=== PATIENT | female | born 1955 | race Caucasian/White ===

== ENCOUNTER → 2016-04-06 | Outpatient (CLI) | payer BC ==
--- NOTE | 2016-04-06 11:46 | BD ---
EXAMINATION TYPE: MG DEXA axial skeleton. DATE OF EXAM: 04/06/2016 10:49 AM COMPARISON: NONE CLINICAL HISTORY: Height: 202 Weight: 5 ft 5 in FRAX RISK QUESTIONS: Alcohol (3 or more units per day): NO Family History (Parent hip fracture): no Glucocorticoids (More than 3mos): NO (Ex: prednisone, prednisolone, methylprednisolone, dexamethasone, and hydrocortisone). History of Fracture in Adulthood: YES Secondary Osteoporosis: 1. Type 1 Diabetes: NO 2. Hyperthyroidism: NO 3. Menopause before 45: YES 4. Malnutrition: NO 5. Chronic liver disease: NO Rheumatoid Arthritis: NO Current Tobacco Use: NO RISK FACTORS HISTORY OF: History of Wrist Fracture: CARPAL TUNNEL LEFT WRIST When: 2014 Other Fractures since Age 52: YES RT ANKLE When: Family History of Osteoporosis: NO Smoke tobacco: NO Drink Alcohol: NO Active: NO Postmenopausal woman: AGE 46 MEDICATIONS: Additional Medications: LISINOPRIL, PREVACID, Additional History: EXAM MEASUREMENTS: Bone mineral densitometry was performed using the BioStable System. Bone mineral density as measured about the Lumbar spine is: ----- L1-L4(G/cm2): 1.010 T Score Values are as follows: ----- L2: -2.2 ----- L3: -0.6 ----- L4: -1.8 ----- L1-L4: -1.4 BASELINE Bone mineral density about the R hip (g/cm2): 0.857 Bone mineral density about the L hip (g/cm2): 0.892 T Score values are as follows: -----R Neck: -1.3 -----L Neck: -1.0 -----R Intertrochanter: -0.7 -----L Intertrochanter: -0.3 BASELINE IMPRESSION: Osteopenia (T Score between -2.5 and -1 as noted by T score values There is slightly increased risk of fracture and the patient may be considered for treatment. Re-Screen 1-2 years. LUMBAR AND RT FEMUR NOTE: T-SCORE=SD OF THE YOUNG ADULT MEAN.
--- NOTE | 2016-04-14 08:28 | MM ---
Reason for exam: screening (asymptomatic). Last mammogram was performed 2 years and 1 month ago. History: Patient is postmenopausal. Physical Findings: A clinical breast exam by your physician is recommended on an annual basis and results should be correlated with mammographic findings. MG Screening Mammo w CAD Bilateral CC and MLO view(s) were taken. Prior study comparison: March 15, 2014, mammogram, performed at [facility] [place]. There are scattered fibroglandular densities. No significant changes when compared with prior studies. ASSESSMENT: Negative, BI-RAD 1 RECOMMENDATION: Routine screening mammogram of both breasts in 1 year.
== END | disposition home or self-care (01) ==
LOC: RADMAMWWP 10:12
PROVIDERS: ATTEND Family Medicine
DX: Z12.31 Encounter for screening mammogram for malignant neoplasm of breast (principal); Z13.820 Encounter for screening for osteoporosis; M85.80 Other specified disorders of bone density and structure, unspecified site
CPT/HCPCS: 77080; G0202

== ENCOUNTER → 2016-08-11 | Outpatient (CLI) | payer BC ==
--- NOTE | 2016-08-11 12:21 | ECHOS ---
DATE OF SERVICE: 08/11/2016 AGE: 60Y SEX: F HT: 65" WT: 204 lbs. Protocol Jimmie: X Others: Stress Echo Stage: 3 Dur. of Exercise: 8:00 *Heart Rate Blood Pressure *Rest: 74 Rest: 123/58 * *Max. Achieved: 147 Maximum BP: 176/59 85% PMHR: 138 100% PMHR: 162 *METS: 10.1 INDICATIONS: Chest pain. MEDICATIONS: Lisinopril, Protonix. Patient was exercised for a total period of 8 minutes. Peak heart rate of 147 was achieved. Maximum blood pressure of 176/59 mmHg was noted. Resting EKG shows normal sinus rhythm with normal NE interval and QRS duration and normal ST-T waves. No ST segment depression suggestive of ischemia is noted. Echocardiographic images reveal a normal left ventricular chamber size with normal left ventricular systolic function. In the immediate postexercise period, normal increase in the wall thickness and contractility is noted. FINAL IMPRESSION: 1. This stress echocardiographic study is negative for stress-induced ischemia. 2. EKG portion of the stress test is not suggestive of ischemia. 3. Patient's exercise tolerance is average.
== END | disposition home or self-care (01) ==
LOC: RADNMMAIN 09:47
PROVIDERS: ATTEND Family Medicine
DX: R07.89 Other chest pain (principal)
CPT/HCPCS: 93350; 93017; Q9957

== ENCOUNTER → 2016-08-25 | Outpatient (CLI) | payer BC ==
--- NOTE | 2016-08-25 19:10 | CT ---
EXAMINATION TYPE: CT abdomen pelvis w con DATE OF EXAM: 08/25/2016 COMPARISON: NONE HISTORY: Ai umbilical pain. CT DLP: 1529.00 mGycm Automated exposure control for dose reduction was used. TECHNIQUE: Helical acquisition of images was performed from the lung bases through the pelvis. CONTRAST: Performed with Oral Contrast and with IV Contrast, patient injected with 100 mL of Omnipaque 300. FINDINGS: Lung bases are clear. There is no pleural effusion. There is a large hiatal hernia. Liver spleen pancreas appear normal. Bile ducts are not dilated. There are clips from cholecystectomy . There is no adrenal mass. Kidneys show satisfactory contrast opacification. There is no hydronephro sis. Abdominal aorta is atheromatous. There is no retroperitoneal adenopathy. There is no ascites. Bl adder distends smoothly. There is no sign of a pelvic mass. There is no free fluid in the pelvis. Som endix appears normal. The bony structures appear intact. IMPRESSION: MILD ATHEROSCLEROTIC VASCULAR DISEASE. NORMAL APPENDIX. NO SIGN OF ACUTE ABDOMEN AND PELVIS. HIATAL H ERNIA NOTED.
== END | disposition home or self-care (01) ==
LOC: RADCTMAIN 15:06
PROVIDERS: ATTEND Family Medicine
DX: K44.9 Diaphragmatic hernia without obstruction or gangrene (principal)
CPT/HCPCS: 74177; Q9967

== ENCOUNTER 2016-10-13 09:16 | Day surgery (SDC) | payer BC ==
[2016-10-08 14:23] VITALS: BMI 33.9
[~2016-10-13 09:16] MED LIST: LACTATED RINGERS 1,000 ML IV SCH; LIDOCAINE 1% 20 ML VIAL (10MG/ML) FOR IV START INTRADERMA PRN
[2016-10-13 09:38] VITALS: RESP 16; TEMP 97.9
[2016-10-13] MEDS ORDERED: PROPOFOL 10 MG/ML 20 ML VIAL IV ONE (10:16)
--- NOTE | 2016-10-13 10:47 | P.OP ---
Date of Procedure: 10/13/16 Preoperative Diagnosis: Gastroesophageal reflux disease Postoperative Diagnosis: Hill grade 3 hiatal hernia GERD Obesity BMI 33.9 Procedure(s) Performed: EGD with biopsy Implants: Anesthesia: MAC Surgeon: Chayo Cuello Pathology: other Condition: stable Disposition: PACU Indications for Procedure: 60 years old female presents with refractory gastroesophageal reflux disease. Computed tomography scan showed hiatal hernia. Informed consent obtained and she elected to undergo EGD with possible biopsy. Operative Findings: Hill grade 3 hiatal hernia Description of Procedure: A timeout was performed to verify the correct patient and correct procedure. Patient was on continuous vitals and pulse ox monitoring throughout the procedure. She was placed in lateral decubitus position and an oral bite block was inserted. A well-lubricated Olympus upper endoscope was passed orally. The esophagus was intubated without difficulty. The vocal cords were visualised and protected at all times. The endoscope was passed beyond the pylorus into the first and second portion of the duodenum. No normality was noted in the duodenum mucosa. Two random biopsies were taken from the gastric antrum using cold biopsy forceps. The scope was then retroflexed. Hillgrade 3 hiatal hernia was noted . No mass, active ulcer or bleeding stigmata noted within the gastric lumen. The GE junction is measured at 34 cm from the incisors and diaphragmatic impression at 38 cm . No evidence of reflux esophagitis. The endoscope was gradually withdrawn. No abnormality identified in the esophagus. Patient tolerated the procedure well and was taken to post anesthesia care unit in stable condition. FINAL DIAGNOSIS: 1. Hill Grade 3 Hiatal hernia 2. Gastro esophageal reflux disease 3. Obesity BMI 33.9 SPECIMEN: Antral biopsy RECOMMENDATION: 1. Robotic/lap hiatal hernia repair with mesh with Alanis fundoplication
[2016-10-13 11:13] VITALS: BP 111/66; PULSE 51
== END 2016-10-13 11:45 | disposition home or self-care (01) ==
LOC: ORWHC2ENDO 09:16
PROVIDERS: ATTEND Surgery
DX: K29.50 Unspecified chronic gastritis without bleeding (principal); K21.9 Gastro-esophageal reflux disease without esophagitis; K44.9 Diaphragmatic hernia without obstruction or gangrene; E66.9 Obesity, unspecified; Z68.33 Body mass index [BMI] 33.0-33.9, adult; I10 Essential (primary) hypertension; Z79.899 Other long term (current) drug therapy; Z88.0 Allergy status to penicillin
CPT/HCPCS: 81025; 88305; 88342; 43239; J2704

== ENCOUNTER → 2016-11-05 | Outpatient (CLI) | payer BC ==
[2016-11-05 13:20] LABS: Basophils % (A) 1 %; CH 31.4; CHCM 34.4; Eosinophils # (A) 0.1 k/uL (0-0.7); Eosinophils % (A) 1 %; HCT 43.9 % (34.0-46.0); HDW 2.44; HGB 14.4 gm/dL (11.4-16.0); Luc # (Auto) 0.08; Luc % (Auto) 1; Lymphocytes # (A) 1.7 k/uL (1.0-4.8); Lymphocytes % (A) 29 %; MCH 30.1 pg (25.0-35.0); MCHC 32.8 g/dL (31.0-37.0); MCV 91.8 fL (80.0-100.0); Monocytes # (A) 0.2 k/uL (0-1.0); Monocytes % (A) 4 %; Neutrophils # (A) 3.6 k/uL (1.3-7.7); Neutrophils % (A) 63 %; RBC 4.79 m/uL (3.80-5.40); RDW 14.4 % (11.5-15.5); WBC 5.7 k/uL (3.8-10.6); WBC (Perox) 5.68
== END | disposition home or self-care (01) ==
LOC: LABWHC1 12:35
PROVIDERS: ATTEND Anesthesiology
DX: Z01.812 Encounter for preprocedural laboratory examination (principal)
CPT/HCPCS: 36415; 85025

== ENCOUNTER 2016-11-15 08:44 | Inpatient (IN) | payer BC ==
[~2016-11-15 08:44] MED LIST changes: +DEXAMETHASONE SOD PHOSPHATE 10 MG/ML 1 ML VIAL IV ONE; +HEPARIN SODIUM,PORCINE 5,000 UNIT/ML 1 ML VIAL SQ ONE; +HYDROmorphone 1 MG/ML 1 ML SYRINGE IVP PRN; -LACTATED RINGERS 1,000 ML IV SCH; -LIDOCAINE 1% 20 ML VIAL (10MG/ML) FOR IV START INTRADERMA PRN; +MIDAZOLAM 2 MG/2 ML VIAL IV PRN; +ONDANSETRON 4 MG/2 ML VIAL IVP ONE; +SCOPOLAMINE 1.5MG/72HR PATCH TRANSDERM ONE; +ceFAZolin 2 GM in SODIUM CHLORIDE 0.9% 100 ML IVPB ONE
[2016-11-15] MEDS: LACTATED RINGERS 1,000 ML IV SCH (10:42)
[2016-11-15] MEDS ORDERED: LIDOCAINE 1% 20 ML VIAL (10MG/ML) FOR IV START INTRADERMA ONE (10:43)
[2016-11-15] MEDS ORDERED: CLINDAMYCIN 900 MG in DEXTROSE 5% IN WATER 50 ML IVPB STA ×2 (10:55)
[2016-11-15] MEDS ORDERED: PROPOFOL 10 MG/ML 20 ML VIAL IV ONE (11:08)
[2016-11-15] MEDS ORDERED: LIDOCAINE 1% INJ 10MG/ML (20 ML MDV) ONE (11:08)
[2016-11-15] MEDS ORDERED: ROCURONIUM BROMIDE 10 MG/ML 10 ML VIAL IV ONE (11:08)
[2016-11-15] MEDS ORDERED: SUCCINYLCHOLINE CHLORIDE 100 MG/5 ML SYR IV ONE (11:08)
[2016-11-15] MEDS ORDERED: HYDROmorphone (PF) 1 MG/ML ONE (11:08)
[2016-11-15] MEDS ORDERED: DILTIAZEM 100 MG VIAL.PORT IV ONE (11:08)
[2016-11-15] MEDS ORDERED: MIDAZOLAM 2 MG/2 ML VIAL ONE (11:08)
[2016-11-15] MEDS ORDERED: PHENYLEPHRINE-0.9% NACL SYG 1 MG/10 ML SYRINGE ONE (11:08)
[2016-11-15] MEDS ORDERED: fentaNYL (PF) 50 MCG/ML 2 ML AMP ONE (11:08)
[2016-11-15] MEDS ORDERED: NEOSTIGMINE 1 MG/ML 10 ML VIAL ONE (11:08)
[2016-11-15] MEDS ORDERED: GLYCOPYRROLATE 0.2 MG/ML 2 ML VIAL ONE (11:08)
[2016-11-15] MEDS ORDERED: ePHEDrine SULFATE/0.9% NACL/PF 50 MG/5 ML SYRINGE IV ONE (11:08)
[2016-11-15] MEDS ORDERED: LIDOCAINE 2%-EPI 1:100,000 20 ML VIAL SQ ONE (11:46)
[2016-11-15] MEDS ORDERED: LACTATED RINGERS 1,000 ML IV ONE (14:26)
[2016-11-15] MEDS ORDERED: HYOSCYAMINE ORAL DROPS 1.875 MG/15 ML BOTTLE PO PRN (14:49)
[2016-11-15] MEDS ORDERED: NALOXONE 0.4 MG/ML 1 ML VIAL IV PRN (14:49)
[2016-11-15] MEDS ORDERED: ONDANSETRON 4 MG/2 ML VIAL IVP PRN (14:49)
[2016-11-15] MEDS ORDERED: diphenhydrAMINE 50 MG/ML 1 ML VIAL IVP PRN (14:49)
[2016-11-15] MEDS ORDERED: HYDROmorphone 1 MG/ML 1 ML SYRINGE IVP ONE (15:51)
[2016-11-15] MEDS: ALBUTEROL NEBULIZED 2.5 MG/3 ML INHALATION SCH ×2 (17:07→21:07)
[2016-11-15] MEDS: HEPARIN SODIUM,PORCINE 5,000 UNIT/ML 1 ML VIAL SQ SCH (17:35)
[2016-11-15 18:10] VITALS: BMI 33.7
[2016-11-15] MEDS: ACETAMINOPHEN IV (For NPO) 1,000 MG in EMPTY BAG 1 BAG IVPB SCH (20:04)
[2016-11-15] MEDS: 0.9% NACL WITH KCL 20 MEQ/L 1,000 ML IV SCH (20:04)
[2016-11-15] MEDS: HYDROmorphone 1 MG/ML 1 ML SYRINGE IVP PRN (21:38)
[2016-11-16] MEDS: ACETAMINOPHEN IV (For NPO) 1,000 MG in EMPTY BAG 1 BAG IVPB SCH ×2 (02:30→10:13)
[2016-11-16] MEDS: HYDROmorphone 1 MG/ML 1 ML SYRINGE IVP PRN (06:37)
[2016-11-16] MEDS: 0.9% NACL WITH KCL 20 MEQ/L 1,000 ML IV SCH (06:37)
[2016-11-16 07:01] LABS: Anion Gap 8 mmol/L; Blood Urea Nitrogen 9 mg/dL (7-17); Calcium 8.6 mg/dL (8.4-10.2); Carbon Dioxide 23 mmol/L (22-30); Chloride 105 mmol/L (98-107); Magnesium 1.8 mg/dL (1.6-2.3); Non-African American GFR(MDRD) >60 (>60 ml/min/1.73 sqM); Phosphorus 3.6 mg/dL (2.5-4.5); Potassium 4.3 mmol/L (3.5-5.1); Sodium 136 mmol/L (137-145)
[2016-11-16 07:07] LABS: Basophils % (A) 0 %; CH 31.6; CHCM 34.3; Eosinophils % (A) 0 %; HCT 35.8 % (34.0-46.0); Luc # (Auto) 0.06; Luc % (Auto) 1; Lymphocytes # (A) 1.3 k/uL (1.0-4.8); Lymphocytes % (A) 17 %; MCH 31.1 pg (25.0-35.0); MCHC 33.6 g/dL (31.0-37.0); MCV 92.5 fL (80.0-100.0); Mean Platelet Volume 8.5; Monocytes # (A) 0.3 k/uL (0-1.0); Monocytes % (A) 4 %; Neutrophils % (A) 79 %; RBC 3.86 m/uL (3.80-5.40); RDW 14.1 % (11.5-15.5); WBC 7.6 k/uL (3.8-10.6); WBC (Perox) 7.76
[2016-11-16] MEDS: ALBUTEROL NEBULIZED 2.5 MG/3 ML INHALATION SCH ×2 (09:08→12:19)
--- NOTE | 2016-11-16 10:18 | FL ---
EXAMINATION TYPE: FL UGI DATE OF EXAM: 11/16/2016 COMPARISON: NONE HISTORY: Postoperative evaluation after Alanis fundoplication. TECHNIQUE: A double contrast UGI study is performed. FINDINGS: Delayed propulsion of contrast is seen through the distal esophagus at the gastroesophageal junction. Eventual opening of the lower esophageal sphincter is visualized with no evidence of stricture. Wild is is seen within the distal esophagus with no reflux. A few tertiary contractions are noted. No evid ence of leak is seen. IMPRESSION: Moderate obstruction without stricture at the gastroesophageal junction, which may relate to postoperative edema. No evidence of leak.
[2016-11-16] MEDS: HEPARIN SODIUM,PORCINE 5,000 UNIT/ML 1 ML VIAL SQ SCH ×2 (10:20)
[2016-11-16] MEDS ORDERED: DEXAMETHASONE SOD PHOSPHATE 10 MG/ML 1 ML VIAL IV STA (10:20)
[2016-11-16 12:07] VITALS: BP 91/53; PULSE 60; RESP 18; TEMP 97.8
--- NOTE | 2016-11-16 12:49 | P.DS ---
Providers Date of admission: 11/15/16 08:44 Expected date of discharge: 11/16/16 Attending physician: Chayo Cuello Primary care physician: [facility] Course: 61-year-old female who presented for a elective robotic-assisted laparoscopic pavel fundoplication with a hiatal hernia repair for treatment of symptomatic refractory esophageal reflux disease. Patient did have a CAT scan of the chest did show a hiatal hernia done in September 2016. Patient underwent an EGD with biopsies and 10/13/2016 it did show the high grade 3 hiatal hernia.. On November 16 patient was tolerating the clear liquid diet. Pain medication effective for pain control. Patient was felt to be appropriate to proceed with a discharge to home Impression discharge diagnoses High grade 3 hiatal hernia per CAT scan of the chest September 2016 Symptomatic refractory gastroesophageal reflux disease EGD with biopsies done in September 2016 Status post robotic-assisted laparoscopic pavel fundoplication with hiatal hernia repair for symptomatic esophageal reflux disease Obesity BMI 33 The above impression and plan of care have been discussed and directed by signing physician. Leslie Donahue nurse practitioner acting as scribe for signing physician. Plan - Discharge Summary New Discharge Prescriptions: New HYDROcodone/APAP 5-325MG [[place] 5-325] 1 tab PO Q4HR PRN #15 tab PRN Reason: Pain Continue Lisinopril [Zestril] 10 mg PO QAM Discontinued Pantoprazole Sodium [Protonix] 40 mg PO BID Discharge Medication List Lisinopril [Zestril] 10 mg PO QAM 03/12/16 [History] HYDROcodone/APAP 5-325MG [[place] 5-325] 1 tab PO Q4HR PRN #15 tab 11/16/16 [Rx] Follow up Appointment(s)/Referral(s): Chayo Cuello MD [STAFF PHYSICIAN] - 1 Week Activity/Diet/Wound Care/Special Instructions: Diet per dietary instructions provided by the dietitian Discharge Disposition: HOME SELF-CARE
--- NOTE | 2016-12-13 13:50 | P.OP ---
Date of Procedure: 11/15/16 Preoperative Diagnosis: GERD Hiatal hernia Obesity BMI 33.8 Postoperative Diagnosis: Same Procedure(s) Performed: Robotic assist laparoscopic hiatal hernia repair and Alanis fundoplication Intraop EGD Implants: NA Anesthesia: OLIVEA, local Surgeon: Chayo Cuello Estimated Blood Loss (ml): 10 Pathology: none sent Condition: stable Disposition: PACU Indications for Procedure: 61 yrs old female presents with refractory GERD and hiatal hernia. Informed consent obtained. Description of Procedure: The patient was brought to the operating room and placed in supine position. General anesthesia with endotracheal intubation was performed as per anesthesia team. A Stovall catheter was inserted under sterile aseptic precautions. 2 secure straps were placed. The abdomen was prepped and draped using ChloraPrep and sterile dressings were applied followed by an Ioban dressing. A 5 mm skin incision was made in left anterior axillary line and a Veress needle was inserted. Proper position was confirmed by aspiration and saline meniscus test. Pneumoperitoneum was insufflated to a pressure of 15 mm of Hg. Using 5 mm 30 laparoscope, the peritoneal cavity was entered under direct vision using the Optiview technique. Two 8 mm robotic trocars were placed in the left upper quadrant, a 12 mm camera port above the umbilicus, another 12 mm port in the right upper quadrant and a 5 mm robotic trocar in the right upper quadrant. The da Ranjith robot was then brought in. The patient was placed in reverse Trendelenburg position. A sima flex liver retractor was introduced in the right epigastric port to elevate the left lobe of the liver and expose the hiatus. Moderate size hernia was noted with 15% of the stomach in the thoracic cavity. The lesser omentum was opened with vessel sealer. The incision was extended over the hiatus to the left of the maude. The right maude was identified and cleared of its investing tissue, and the dissection was then carried over the arch of the crura. The left maude was similarly dissected and the phrenoesophageal ligament divided. The vagus nerves were identified and protected. The esophagus was gently elevated with a closed grasper and the dissection progressed underneath the esophagus until it was fully mobilized. The hernia sac extended up to the chest and was fully mobilized and resected. The gastroepiploic vessels were ligated along the greater curvature of stomach. Care was taken not to injure spleen while dividing the short gastric vessels with vessel sealer. The stomach was completely mobilized and adequate length was obtained in the esophagus allowing at least 3 cm of intra abdominal esophagus. The hernia defect measures 5 x 5 cm. 4 interrupted sutures of 2-0 Ethibond were placed to close the hiatal defect posteriorly and anteriorl without causing undue narrowing of the esophagus. An angled grasper was passed behind the esophagus and the fundus grasped and pulled behind the esophagus. It passed easily and was easily approximated without tension to the remaining fundus, creating a 360 floppy wrap around the distal esophagus. The wrap was sutured to itself with 3 interrupted sutures of 2-0 Ethibond. The top most suture included a partial thickness bite of the esophagus to anchor the wrap. Intraoperative EGD was then performed. The scope was easily passed beyond the wrap without any undue tension or narrowing. The scope was retroflexed and the Alanis wrap visualized. There was no air leak upon insufflation of the stomach. Excess air was suctioned and scope was removed. The liver retractor was removed. The 12 mm trocar sites were closed with two transfascial sutures of 0 Vicryl. Pneumoperitoneum was evacuated and all trocar sites were examined. No evidence of bleeding. The skin incision were closed with 4-0 Monocryl followed by Dermabond skin glue. Sponge, instrument and needle count were correct x 2. Patient tolerated the procedure well and was taken to post anesthesia care unit in stable condition
== END 2016-11-16 14:10 | disposition home or self-care (01) | DRG 328 ==
LOC: 2ORWHC 08:44 → 6PED 15:15
PROVIDERS: ADMIT Surgery; ATTEND Surgery
PROC: 0BUR4JZ (ICD-10-PCS; 2016-11-15)
PROC: 0BUS4JZ (ICD-10-PCS; 2016-11-15)
PROC: 8E0W4CZ Robotic Assisted Procedure of Trunk Region, Percutaneous Endoscopic Approach (ICD-10-PCS; 2016-11-15)
PROC: 0DJ08ZZ Inspection of Upper Intestinal Tract, Via Natural or Artificial Opening Endoscopic (ICD-10-PCS; 2016-11-15)
PROC: 0DV44ZZ Restriction of Esophagogastric Junction, Percutaneous Endoscopic Approach (ICD-10-PCS; principal; 2016-11-15 10:30)
DX: K21.0 Gastro-esophageal reflux disease with esophagitis (principal); E66.9 Obesity, unspecified; I10 Essential (primary) hypertension; K44.9 Diaphragmatic hernia without obstruction or gangrene; K29.50 Unspecified chronic gastritis without bleeding; E78.5 Hyperlipidemia, unspecified; Z71.3 Dietary counseling and surveillance; Z88.0 Allergy status to penicillin; Z87.442 Personal history of urinary calculi; Z79.899 Other long term (current) drug therapy; Z82.49 Family history of ischemic heart disease and other diseases of the circulatory system; Z87.19 Personal history of other diseases of the digestive system; Z68.33 Body mass index [BMI] 33.0-33.9, adult
CPT/HCPCS: 74240; 80051; 82310; 82565; 83735; 84100; 84520; 85025; 86850; 86900; 86901; 94640

== ENCOUNTER → 2017-09-26 | Outpatient (CLI) | payer BC ==
--- NOTE | 2017-09-26 14:47 | US ---
EXAMINATION TYPE: US kidneys/renal and bladder DATE OF EXAM: 09/26/2017 COMPARISON: CT 08/25/16 CLINICAL HISTORY: N20.0 Calculus of [id number] back pain. EXAM MEASUREMENTS: Right Kidney: 10.5 x 4.8 x 4.6 cm Left Kidney: 10.7 x 5.4 x 4.2 cm Post Void Residual Volume: 10.9 mL Right Kidney: No hydronephrosis or masses seen Left Kidney: No hydronephrosis or masses seen Bladder: wnl Bilateral Jets seen: Yes Normal Post Void Residual: Yes There is no evidence for hydronephrosis at this point in time. No nephrolithiasis is seen. No jacob s are identified. The urinary bladder is anechoic. Bilateral ureteral jets are seen. IMPRESSION: No hydronephrosis or nephrolithiasis seen sonographically. If there is further clinical concern CT co uld be performed.
== END | disposition home or self-care (01) ==
LOC: RADUSWWP 14:17
PROVIDERS: ATTEND Family Medicine
DX: N20.0 Calculus of kidney (principal); M54.5 Low back pain
CPT/HCPCS: 76770

== ENCOUNTER → 2018-01-03 | Outpatient (CLI) | payer BC ==
--- NOTE | 2018-01-03 11:19 | MM ---
Reason for exam: screening (asymptomatic). Last mammogram was performed 1 year and 9 months ago. History: Patient is postmenopausal. Physical Findings: A clinical breast exam by your physician is recommended on an annual basis and results should be correlated with mammographic findings. MG 3D Screening Mammo W/Cad Bilateral CC and MLO view(s) were taken. Prior study comparison: April 06, 2016, bilateral MG screening mammo w CAD. March 15, 2014, mammogram, performed at [facility] [place]. There are scattered fibroglandular densities. No significant changes when compared with prior studies. ASSESSMENT: Negative, BI-RAD 1 RECOMMENDATION: Routine screening mammogram of both breasts in 1 year.
== END ==
LOC: RADMAMWWP 07:02
PROVIDERS: ATTEND Family Medicine
DX: Z12.31 Encounter for screening mammogram for malignant neoplasm of breast (principal)
CPT/HCPCS: 77063; 77067

== ENCOUNTER 2019-02-02 17:56 | Emergency (ER) | payer BC ==
[2019-02-02 18:04] VITALS: RESP 18; TEMP 98.1
[2019-02-02] MEDS ORDERED: IBUPROFEN 600 MG TAB PO STA (18:14)
[2019-02-02] MEDS ORDERED: ACETAMINOPHEN TAB 500 MG TAB PO STA (18:14)
--- NOTE | 2019-02-02 18:19 | ED ---
Fall HPI - General Chief Complaint: Fall Stated Complaint: fall/shoulder injury Time Seen by Provider: 02/02/19 18:04 Source: patient Mode of arrival: ambulatory - History of Present Illness Initial Comments: 63-year-old female patient presents to the emergency department today for evaluation of left shoulder, left wrist, left hand pain after experiencing a fall. Patient states she was in the store parking lot when she tripped and fell on out stretched hand. Patient states injury occurred a couple of hours ago. States that she is having difficulty using the left arm due to increased pain with movement and pressure. Patient states she did hear a "pop" in the left shoulder with the injury. She states she is having some tingling to the left thumb, index, and middle fingers. Denies any elbow pain. She denies hitting her head or losing consciousness. Denies any neck or back pain. Patient denies any headache, chest pain, shortness of breath, dizziness, weakness, abdominal pain, nausea, vomiting, or difficulties with bowel movements or urination. - Related Data Home Medications Medication Instructions Recorded Confirmed Lisinopril [Zestril] 10 mg PO QAM 03/12/16 11/15/16 Previous Rx's Medication Instructions Recorded HYDROcodone/APAP 5-325MG [[place] 1 tab PO Q4HR PRN #15 tab 11/16/16 5-325] Ibuprofen [Motrin] 600 mg PO Q8HR PRN #30 tab 02/02/19 Allergies Allergy/AdvReac Type Severity Reaction Status Date / Time Penicillins Allergy Rash/Hives Verified 02/02/19 18:00 Review of Systems ROS Statement: Those systems with pertinent positive or pertinent negative responses have been documented in the HPI. ROS Other: All systems not noted in ROS Statement are negative. Past Medical History Past Medical History: GERD/Reflux, Hyperlipidemia, Hypertension Additional Past Medical History / Comment(s): KIDNEY STONES, stress test to r/o any heart problems due to all her GERD. heart arrhythmia History of Any Multi-Drug Resistant Organisms: None Reported Past Surgical History: Cholecystectomy, Hernia Repair, Tubal Ligation Additional Past Surgical History / Comment(s): LEFT MIDDLE FINGER, CARPAL TUNNEL LEFT WRIST ,REVERSAL OF TUBAL LIGATION, kidney stone removed surgically. 11/15/2016 Alanis Past Anesthesia/Blood Transfusion Reactions: No Reported Reaction, Motion Sickness Past Psychological History: No Psychological Hx Reported Smoking Status: Never smoker Past Alcohol Use History: None Reported Past Drug Use History: None Reported - Past Family History Mother History Unknown: Yes Family Medical History: Diabetes Mellitus Additional Family Medical History / Comment(s): Mother at age 41. General Exam Limitations: no limitations General appearance: alert, in no apparent distress, other (This is a well- developed, well-nourished adult female patient in no acute distress. Vital signs upon presentation are temperature 98.1F, pulse 54, respirations 18, blood pressure 155/79, pulse ox 98% on room air.) Head exam: Present: atraumatic, normocephalic, normal inspection Eye exam: Present: normal appearance, PERRL, EOMI. Absent: scleral icterus, conjunctival injection, periorbital swelling ENT exam: Present: normal exam, normal oropharynx, mucous membranes moist Neck exam: Present: normal inspection, full ROM, other (Nontender, no step-off, no deformity to firm midline palpation of the posterior cervical spine. Full range of motion without pain or limitation.). Absent: tenderness, meningismus, lymphadenopathy Respiratory exam: Present: normal lung sounds bilaterally. Absent: respiratory distress, wheezes, rales, rhonchi, stridor Cardiovascular Exam: Present: regular rate, normal rhythm, normal heart sounds. Absent: systolic murmur, diastolic murmur, rubs, gallop, clicks Extremities exam: Present: normal inspection, full ROM, tenderness (Tenderness over the left palm and the left anatomical snuffbox.), normal capillary refill, other (Skin to the left upper extremity is pink, warm, dry. Cap refills less than 3 seconds. Radial pulses are 2+ and equal bilaterally.). Absent: pedal edema, joint swelling, calf tenderness Back exam: Present: normal inspection, other (Nontender, no step-off, no deformi ty to firm midline palpation of the thoracic and lumbar vertebrae. Full range of motion without pain or limitation.). Absent: vertebral tenderness Neurological exam: Present: alert, oriented X3, CN II-XII intact Psychiatric exam: Present: normal affect, normal mood Skin exam: Present: warm, dry, intact, normal color. Absent: rash Course Vital Signs 02/02/19 02/02/19 02/02/19 18:00 18:47 19:32 Temperature 98.1 F 98.1 F Pulse Rate 54 L 58 L 58 L Respiratory 18 18 18 Rate Blood Pressure 155/79 147/89 147/89 O2 Sat by Pulse 98 95 95 Oximetry Procedures - Orthopedic Splinting/Casting Injury #1 Side: left Upper Extremity Injury Location: wrist Upper Extremity Immobilizer: thumb spica, Kimani wrap Additional Comments: Neurovascular status intact after splint application, skin to the hand is pink, warm, dry. Cap refills less than 3 seconds. Radial pulses 2+ and equal bilaterally Medical Decision Making - Medical Decision Making 63-year-old female patient presented to the emergency department today for evaluation after experiencing a trip and fall accident. Physical examination did reveal tenderness over the left wrist including the anatomical snuffbox. Decreased range of motion to left shoulder due to increased pain with movement. Remainder physical exam is unremarkable. X-rays of the left shoulder were obtained and showed no acute abdomen male this. X-ray of the left wrist and hand were obtained and did show evidence for possible scapholunate ligament tear. Patient is placed in a thumb spica splint.. She'll be discharged follow- up with the smoke and flame specialist for further evaluation as soon as possible. Return parameters discussed in detail. She verbalizes understanding and agrees with this plan. - Radiology Data Radiology results: report reviewed, image reviewed 3 views of the left hand are obtained. Report was reviewed in its entirety. Impression by Dr. Urias shows evidence of scapholunate ligament tear. No acute fracture seen. 4 views of the left wrist are obtained. Report was reviewed in its entirety. Impression by Dr. Urias shows slight widening of the scapholunate joint space adjusted of ligamentous tear. No fracture seen. Medical spurring at the first carpometacarpal joint noted. 3 views of the left shoulder obtained. Report was reviewed in its entirety. Impression by Dr. Urias shows negative left shoulder exam. Disposition Clinical Impression: Left scapholunate ligament tear, Injury of left shoulder Disposition: HOME SELF-CARE Condition: Good Instructions (If sedation given, give patient instructions): Wrist Injury (ED), Splint Care (ED), Shoulder Sprain (ED) Additional Instructions: Leave splint in place, do not get this wet. Take medication as directed for pain control. Apply ice to the painful areas. Follow-up with smoke and flame specialist for recheck as soon as possible. Follow up through primary care physician for recheck in 1-2 days. Return to the emergency department immediately for any new, worsening, or concerning symptoms. Prescriptions: Ibuprofen [Motrin] 600 mg PO Q8HR PRN #30 tab PRN Reason: Pain Is patient prescribed a controlled substance at d/c from ED?: No Referrals: Ayse Elizabeth DO [Primary Care Provider] - 1-2 days Ghulam Parada DO [Medical Doctor] - 1-2 days Time of Disposition: 19:19
--- NOTE | 2019-02-02 18:31 | XR ---
EXAMINATION TYPE: XR shoulder complete LT DATE OF EXAM: 02/02/2019 COMPARISON: NONE HISTORY: Shoulder pain TECHNIQUE: 3 views FINDINGS: I see no fracture nor dislocation. Glenohumeral joint is intact. There are no pathologic ca lcifications. IMPRESSION: Negative left shoulder exam.
--- NOTE | 2019-02-02 18:50 | XR ---
EXAMINATION TYPE: XR wrist complete LT DATE OF EXAM: 02/02/2019 COMPARISON: NONE HISTORY: Wrist pain TECHNIQUE: 4 views FINDINGS: I see no fracture nor dislocation. There is some widening of the scapholunate joint space. There are no erosions. IMPRESSION: Slight widening of the scapholunate joint space suggestive of ligamentous tear. No fractu re seen. Minimal spurring at the first carpometacarpal joint noted.
--- NOTE | 2019-02-02 18:51 | XR ---
EXAMINATION TYPE: XR hand complete LT DATE OF EXAM: 02/02/2019 COMPARISON: NONE HISTORY: Hand and wrist pain TECHNIQUE: 3 views FINDINGS: There is deformity of the distal phalanx of the little finger consistent with an old injury . I see no acute fracture nor dislocation. There is some widening of the scapholunate joint space. Me tacarpals are intact. IMPRESSION: There is evidence of scapholunate ligament tear. No acute fracture seen.
[2019-02-02 18:53] VITALS: BP 147/89; PULSE 58
== END 2019-02-02 19:32 | disposition home or self-care (01) ==
LOC: EC 17:56
DX: S63.8X2A Sprain of other part of left wrist and hand, initial encounter (principal); S49.92XA Unspecified injury of left shoulder and upper arm, initial encounter; I10 Essential (primary) hypertension; Z79.899 Other long term (current) drug therapy; Z98.890 Other specified postprocedural states; W01.0XXA Fall on same level from slipping, tripping and stumbling without subsequent striking against object, initial encounter; Y93.89 Activity, other specified; Y92.009 Unspecified place in unspecified non-institutional (private) residence as the place of occurrence of the external cause
CPT/HCPCS: 29125; 99283

== ENCOUNTER 2020-06-08 19:08 | Emergency (ER) | payer BC ==
--- NOTE | 2020-06-08 19:34 | ED ---
General Adult HPI - General Chief complaint: ENT Stated complaint: nosebleed Time Seen by Provider: 06/08/20 19:19 Source: patient, family Mode of arrival: ambulatory Limitations: no limitations - History of Present Illness Initial comments: Patient presents to the ED with her for evaluation. Patient states that she developed right-sided epistaxis while playing video games about 1 hour ago. Patient states that she may have rubbed the right side of her nose prior to her epistaxis beginning today. Patient states that she has had small episodes of epistaxis periodically over the past several weeks. Patient denies any significant trauma and she denies being on any anticoagulant medication. Patient denies having a headache to me. Patient denies having any pain at all. Patient denies fever or chills, cough or cold symptoms, headache, nasal pain, chest pain, dyspnea, dizziness, nausea or vomiting, or any other symptoms or complaints. - Related Data Home Medications Medication Instructions Recorded Confirmed Aspirin EC [Ecotrin Low Dose] 81 mg PO DAILY 06/08/20 06/08/20 Metoprolol Succinate [Toprol XL] 50 mg PO BID 06/08/20 06/08/20 Rosuvastatin [Crestor] 10 mg PO DAILY 06/08/20 06/08/20 Allergies Allergy/AdvReac Type Severity Reaction Status Date / Time Penicillins Allergy Rash/Hives Verified 06/08/20 19:34 Review of Systems ROS Statement: Those systems with pertinent positive or pertinent negative responses have been documented in the HPI. ROS Other: All systems not noted in ROS Statement are negative. Past Medical History Past Medical History: GERD/Reflux, Hyperlipidemia, Hypertension Additional Past Medical History / Comment(s): KIDNEY STONES, stress test to r/o any heart problems due to all her GERD. heart arrhythmia History of Any Multi-Drug Resistant Organisms: None Reported Past Surgical History: Ablation, Cholecystectomy, Hernia Repair, Tubal Ligation Additional Past Surgical History / Comment(s): LEFT MIDDLE FINGER, CARPAL TUNNEL LEFT WRIST ,REVERSAL OF TUBAL LIGATION, kidney stone removed surgically. 11/15/2016 Alanis Past Anesthesia/Blood Transfusion Reactions: No Reported Reaction, Motion Sickness Past Psychological History: No Psychological Hx Reported Smoking Status: Never smoker Past Alcohol Use History: None Reported Past Drug Use History: None Reported - Past Family History Mother History Unknown: Yes Family Medical History: Diabetes Mellitus Additional Family Medical History / Comment(s): Mother at age 41. General Exam Limitations: no limitations General appearance: alert, in no apparent distress Head exam: Present: atraumatic, normocephalic Eye exam: Present: normal appearance, EOMI ENT exam: Present: mucous membranes moist, other (Small blood clots are noted in bilateral nasal cavities; there is no active epistaxis at this time) Neck exam: Present: other (Trachea is in midline) Respiratory exam: Present: normal lung sounds bilaterally. Absent: respiratory distress, wheezes, rales, rhonchi, stridor Cardiovascular Exam: Present: regular rate, normal rhythm, normal heart sounds, other (Normal radial pulses bilaterally) Neurological exam: Present: alert, oriented X3. Absent: motor sensory deficit Psychiatric exam: Present: normal affect, normal mood Skin exam: Present: warm, dry, intact, normal color Course Vital Signs 06/08/20 06/08/20 19:17 19:58 Temperature 97.9 F 97 F L Pulse Rate 62 64 Respiratory 18 16 Rate Blood Pressure 164/88 124/71 O2 Sat by Pulse 97 100 Oximetry Medical Decision Making - Medical Decision Making Patient has not had any active epistaxis while in the ED. I discussed with the patient the option to place a nasal packing or nasal rocket, but patient declined, stating that she does not feel that she would be able to tolerate it. Will discharge patient home with a bottle of Afrin nasal spray and instructions for use, as well as a nasal clamp and instructions for use. Patient was instructed to apply pressure for 20-30 minutes should her bleeding return, and if she is unable to get it to stop, then to return to the ED. Patient was counseled about epistaxis, and she was clearly explained return and follow-up instructions. Patient feels comfortable with this plan. Disposition Clinical Impression: Epistaxis Disposition: HOME SELF-CARE Condition: Stable Instructions (If sedation given, give patient instructions): Nosebleed (ED) Additional Instructions: Return to the ER immediately should you develop increased or severe bleeding, any significant pain, a fever, shortness of breath, feeling dizzy or faint, or new or worsening symptoms. Follow up closely with your primary care provider. Is patient prescribed a controlled substance at d/c from ED?: No Referrals: Ayse Elizabeth DO [Primary Care Provider] - 1-2 days Time of Disposition: 19:58
[2020-06-08] MEDS ORDERED: OXYMETAZOLINE 0.05% NASL SPRAY 1 SPRAY BOTTLE NASAL STA (19:36)
[2020-06-08 20:00] VITALS: BP 124/71; PULSE 64; RESP 16; TEMP 97
== END 2020-06-08 19:58 | disposition home or self-care (01) ==
LOC: EC 19:08
DX: R04.0 Epistaxis (principal); K21.9 Gastro-esophageal reflux disease without esophagitis; E78.5 Hyperlipidemia, unspecified; I10 Essential (primary) hypertension; Z79.82 Long term (current) use of aspirin; Z88.0 Allergy status to penicillin
CPT/HCPCS: 99283

== ENCOUNTER → 2021-09-15 | Outpatient (CLI) | payer BC ==
--- NOTE | 2021-09-15 19:10 | BD ---
EXAMINATION TYPE: Axial Bone Density DATE OF EXAM: 09/15/2021 COMPARISON: 04/06/2016 CLINICAL HISTORY: 65 years year old Female. ICD-10 CODE: Z78.[address] Height: 63 IN Weight: 179 LBS FRAX RISK QUESTIONS: History of Fracture in Adulthood: RT ANKLE AGE 52 RISK FACTORS HISTORY OF: Active: YES Diet low in dairy products/other sources of calcium: YES Postmenopausal woman: AGE 47 Lost more than 2 inches in height since high school: YES MEDICATIONS: Additional Medications: METOPROLOL, LIPITOR EXAM MEASUREMENTS: Bone mineral densitometry was performed using the [employer] System. Bone mineral density as measured about the Lumbar spine is: ----- L1-L4(G/cm2): 0.974 T Score Values are as follows: ----- L1: -2.2 ----- L2: -2.2 ----- L3: -1.0 ----- L4: -1.6 ----- L1-L4: -1.7 Bone mineral density has: Decreased -0.8% since study of: 04/06/2016 Bone mineral density about the R hip (g/cm2): 0.790 Bone mineral density about the L hip (g/cm2): 0.826 T Score values are as follows: -----R Neck: -1.8 -----L Neck: -1.5 -----R Total: -1.0 -----L Total: -0.7 Bone mineral density has: Decreased -5.2% since study of: 04/06/2016 FRAX%s: The graph provided illustrates a 15.4 chance for a major osteoporotic fx and a 1.9 chance for the hips probability for fx in 10 years time. IMPRESSION: Osteopenia (T Score between -2.5 and -1). There is slightly increased risk of fracture and the patient may be considered for treatment. Re-Screen 2-5 years. NOTE: T-SCORE=SD OF THE YOUNG ADULT MEAN.
--- NOTE | 2021-09-17 07:11 | MM ---
Reason for Exam: Screening (asymptomatic). Last mammogram was performed 3 year(s) and 8 month(s) ago. Patient History: Menarche at age 16. First Full-Term at age 19. Postmenopausal. Risk Values: Yue 5 year model risk: 1.0%. NCI Lifetime model risk: 4.4%. Prior Study Comparison: 03/15/2014 Screening Mammogram, [facility]. 04/06/2016 Bilateral Screening Mammogram, [facility]. 01/03/2018 Bilateral Screening Mammogram, [facility]. Tissue Density: The breast tissue is heterogeneously dense. This may lower the sensitivity of mammography. Findings: Analyzed By CAD. There is no suspicious group of microcalcifications or new suspicious mass in either breast. Overall Assessment: Negative, BI-RAD 1 Management: Screening Mammogram of both breasts in 1 year. A clinical breast exam by your physician is recommended on an annual basis and results should be correlated with mammographic findings. Electronically signed and approved by: Robel De León M.D. Radiologis
== END | disposition home or self-care (01) ==
LOC: RADMAMWWP 12:45
PROVIDERS: ATTEND Family Medicine
DX: Z12.31 Encounter for screening mammogram for malignant neoplasm of breast (principal); M85.89 Other specified disorders of bone density and structure, multiple sites; Z78.0 Asymptomatic menopausal state
CPT/HCPCS: 77067; 77080

== ENCOUNTER 2021-09-26 12:46 | Emergency (ER) | payer BC ==
[2021-09-26 12:53] VITALS: TEMP 97.9
[2021-09-26 13:15] LABS: Glucose,Whole Blood 103 mg/dL (70-110)
--- NOTE | 2021-09-26 13:26 | ED ---
General Adult HPI - General Chief complaint: Eye Problems Stated complaint: Blurred vision Time Seen by Provider: 09/26/21 12:57 Source: patient, RN notes reviewed, old records reviewed Mode of arrival: ambulatory Limitations: no limitations - History of Present Illness Initial comments: Patient is a 65-year-old female with past medical history remarkable for hyperlipidemia, hypertension who takes Crestor, baby aspirin, metoprolol at home presents emergency Department with isolated right lower quadrant right eye loss of vision. Patient was diagnosed with Covid last week and to take the paxlovid but stopped that she states is making her feel bad. Symptoms have been overall improving but yesterday suddenly at 4 PM she experienced the loss of vision. Denies any pain associated with that. Denies any current headaches, numbness, weakness. Denies any chest pain, shortness breath, abdominal pain, nausea, vomiting. His no other acute complaint at this time. No history of strokes or TIAs. Does have a history of SVT status post ablation is not on blood thinners. - Related Data Home Medications Medication Instructions Recorded Confirmed Metoprolol Succinate [Toprol XL] 50 mg PO DAILY 06/08/20 09/26/21 Rosuvastatin [Crestor] 10 mg PO DAILY 06/08/20 09/26/21 Nirmatrelvir/Ritonavir [Paxlovid 1 tab PO DIRECTED 09/26/21 09/26/21 2X150 mg-100 mg (Eua)] Allergies Allergy/AdvReac Type Severity Reaction Status Date / Time Penicillins Allergy Rash/Hives Verified 09/26/21 14:10 Review of Systems ROS Statement: Those systems with pertinent positive or pertinent negative responses have been documented in the HPI. Review of Systems: CONST: Denies fever EYES: Endorses loss of vision ENT: Denies nasal congestion C/V: Denies Chest pain RESP: Denies shortness of breath GI: Denies abdominal pain : Denies dysuria SKIN: Denies rash. MSK: Denies joint pain. NEURO: Denies headache ROS Other: All systems not noted in ROS Statement are negative. Past Medical History Past Medical History: GERD/Reflux, Hyperlipidemia, Hypertension Additional Past Medical History / Comment(s): KIDNEY STONES, stress test to r/o any heart problems due to all her GERD. heart arrhythmia History of Any Multi-Drug Resistant Organisms: None Reported Past Surgical History: Ablation, Cholecystectomy, Hernia Repair, Tubal Ligation Additional Past Surgical History / Comment(s): LEFT MIDDLE FINGER, CARPAL TUNNEL LEFT WRIST ,REVERSAL OF TUBAL LIGATION, kidney stone removed surgically. 11/15/2016 Alanis Past Anesthesia/Blood Transfusion Reactions: No Reported Reaction, Motion Sickness Past Psychological History: No Psychological Hx Reported Smoking Status: Never smoker Past Alcohol Use History: None Reported Past Drug Use History: None Reported - Past Family History Mother History Unknown: Yes Family Medical History: Diabetes Mellitus Additional Family Medical History / Comment(s): Mother at age 41. General Exam - General Exam Comments Initial Comments: General: Appears in no acute distress. HEAD: Normal with no signs of head trauma. EYES: PERRLA, EOMI, conjunctiva normal, no discharge. Pupils are 1 mm and equal bilaterally. Visual acuity is 20/25 in the left eye and 20/50 in the right eye. Intraocular pressures are 11 in the right eye and 12 in the left eye. Loss of peripheral vision in the right lower quadrant of the right eye. Overall somewhat blurry vision in that eye. Stable since yesterday. ENT: Hearing grossly intact, normal oropharynx. RESPIRATORY: Clear breath sounds bilaterally. No wheezes, rales, or rhonchi. C/V: Regular rate and rhythm. S1 and S2 auscultated, no edema, peripheral pulses 2+ and intact throughout ABD: Abd is soft, nontender, nondistended EXT: Normal range of motion, no obvious deformity SKIN: No rashes or lesions observed on exposed skin. NEURO: Alert and oriented 4. NIH is 1 for the monocular vision loss. GCS is 15. No other focal deficits. Limitations: no limitations Course Vital Signs 09/26/21 09/26/21 12:51 15:33 Temperature 97.9 F Pulse Rate 64 51 L Respiratory 16 18 Rate Blood Pressure 122/78 143/87 O2 Sat by Pulse 99 97 Oximetry Medical Decision Making - Medical Decision Making Based on the patient's presentation and physical exam, there is concern for stroke versus possible intraocular issue. We're unable to locate the ultrasound machine and therefore in the meantime stroke pager was activated as neuro symptoms started within 24 hours. Patient was sent for CT imaging to rule out stroke. We'll locate the ultrasound machine. The neuro critical care physician, Dr. Dumont return my phone call at [phone]. He was in agreement with this plan. Recommended Brilinta and aspirin if we are still concerned for stroke following imaging and eye evaluation.She is not a TPA candidate as risks far outweigh the benefits. Onset of symptoms was more than 20 hours ago. EKG showed no signs of acute ischemia. Laboratory studies were remarkable for a normal workup. Sugar is within normal limits. Brain CT shows no acute intracranial process, but there is chronic old age-related changes. CT angiogra m reveals no acute process. Chest x-ray reveals no acute cardiopulmonary process. I spoke with the neuro critical care team again to update them. They expressed understanding. When the ultrasound was located, I was able to obtain a video the patient's right eye, and it does show what is suspected to be a retinal detachment. Atraumatic. I spoke with ophthalmology Dr. moss and reviewed the video with him. We have no capabilities of saving video images, and I was unable to print a picture of the dynamic video to show the retinal detachment. He was in agreement that the patient has a retinal detachment. Requested that the patient be transferred to a facility with a retinal specialist to be evaluated for possible surgery. He recommended . We do not have a retinal spec ialists to treat the patient here.The patient is having a retinal detachment and not a stroke, she will not be started on aspirin and Brilinta at this time. I spoke the patient and she was in agreement with this plan. We reached out and patient was accepted to [facility]. I spoke with Dr. Tate of opt who requested the pt be made NPO. Patient will be transferred to the emergency depa rtment via EMS, accepting physician is Dr. Mauro. She was transferred in stable condition. - Lab Data Result diagrams: 09/26/21 13:15 09/26/21 13:15 Lab Results 09/26/21 09/26/21 09/26/21 Range/Units 13:14 13:15 13:15 WBC 4.7 (3.8-10.6) k/uL RBC 4.65 (3.80-5.40) m/uL Hgb 14.5 (11.4-16.0) gm/dL Hct 42.8 (34.0-46.0) % MCV 92.0 (80.0-100.0) fL MCH 31.1 (25.0-35.0) pg MCHC 33.8 (31.0-37.0) g/dL RDW 13.4 (11.5-15.5) % Plt Count 208 (150-450) k/uL MPV 7.9 Neutrophils % 57 % Lymphocytes % 35 % Monocytes % 5 % Eosinophils % 1 % Basophils % 1 % Neutrophils # 2.7 (1.3-7.7) k/uL Lymphocytes # 1.6 (1.0-4.8) k/uL Monocytes # 0.2 (0-1.0) k/uL Eosinophils # 0.1 (0-0.7) k/uL Basophils # 0.0 (0-0.2) k/uL PT 10.5 (9.0-12.0) sec INR 1.0 (<1.2) APTT 24.2 (22.0-30.0) sec Sodium (137-145) mmol/L Potassium (3.5-5.1) mmol/L Chloride (98-107) mmol/L Carbon Dioxide (22-30) mmol/L Anion Gap mmol/L BUN (7-17) mg/dL Creatinine (0.52-1.04) mg/dL Est GFR (CKD-EPI)AfAm (>60 ml/min/1.73 sqM) Est GFR (CKD-EPI)NonAf (>60 ml/min/1.73 sqM) Glucose (74-99) mg/dL POC Glucose (mg/dL) 103 (70-110) mg/dL POC Glu Video System Repairer Wallace Soriano Calcium (8.4-10.2) mg/dL Total Bilirubin (0.2-1.3) mg/dL AST (14-36) U/L ALT (4-34) U/L Alkaline Phosphatase (38-126) U/L Total Protein (6.3-8.2) g/dL Albumin (3.5-5.0) g/dL 09/26/21 Range/Units 13:15 WBC (3.8-10.6) k/uL RBC (3.80-5.40) m/uL Hgb (11.4-16.0) gm/dL Hct (34.0-46.0) % MCV (80.0-100.0) fL MCH (25.0-35.0) pg MCHC (31.0-37.0) g/dL RDW (11.5-15.5) % Plt Count (150-450) k/uL MPV Neutrophils % % Lymphocytes % % Monocytes % % Eosinophils % % Basophils % % Neutrophils # (1.3-7.7) k/uL Lymphocytes # (1.0-4.8) k/uL Monocytes # (0-1.0) k/uL Eosinophils # (0-0.7) k/uL Basophils # (0-0.2) k/uL PT (9.0-12.0) sec INR (<1.2) APTT (22.0-30.0) sec Sodium 138 (137-145) mmol/L Potassium 3.5 (3.5-5.1) mmol/L Chloride 104 (98-107) mmol/L Carbon Dioxide 24 (22-30) mmol/L Anion Gap 10 mmol/L BUN 15 (7-17) mg/dL Creatinine 0.98 (0.52-1.04) mg/dL Est GFR (CKD-EPI)AfAm 71 (>60 ml/min/1.73 sqM) Est GFR (CKD-EPI)NonAf 62 (>60 ml/min/1.73 sqM) Glucose 146 H (74-99) mg/dL POC Glucose (mg/dL) (70-110) mg/dL POC Glu Video System Repairer ID Calcium 8.9 (8.4-10.2) mg/dL Total Bilirubin 0.5 (0.2-1.3) mg/dL AST 27 (14-36) U/L ALT 27 (4-34) U/L Alkaline Phosphatase 101 (38-126) U/L Total Protein 6.9 (6.3-8.2) g/dL Albumin 4.3 (3.5-5.0) g/dL - EKG Data -: EKG Interpreted by Me EKG Comments: 12-lead Electrocardiogram Interpretation Note EKG was reviewed and interpreted by myself. 12-lead ECG performed at 1344 is interpreted by me as revealing sinus bradycardia at a rate of 55 beats per minute. Pray is normal. DC interval is 160 ms, QRS duration is 111 ms, QTc is 416 ms.. There were no ST or T wave abnormalities to suggest myocardial ischemia or injury. R wave progression across the precordium was satisfactory. By my interpretation this EKG is non-diagnostic for acute ischemia. Critical Care Time Total Critical Care Time: 35 Critical Care Time: Upon my evaluation, this patient had a high probability of imminent or life-threatening deterioration due to rule out stroke, vision loss, acute right eye retina detachment, which required my direct attention, intervention, and personal management. I have personally provided 35 minutes of critical care time exclusive of time spent on separately billable procedures. Time includes review of laboratory data, radiology results, discussion with consultants, and monitoring for potential decompensation. Interventions were performed as documented in my note. Disposition Clinical Impression: Retinal detachment, right Disposition: OTHER INSTITUTION NOT DEFINED Condition: Stable Referrals: Ayse Elizabeth DO [Primary Care Provider] - 1-2 days Time of Disposition: 15:35 - Out of Hospital Transfer - Req. Specs Out of Hospital Transfer - Requested Specifics: Other Emergency Center (Transfered for escalation of care. Requires retina specialist.)
[2021-09-26 13:32] LABS: Basophils % (A) 1 %; Eosinophils # (A) 0.1 k/uL (0-0.7); Eosinophils % (A) 1 %; HCT 42.8 % (34.0-46.0); HGB 14.5 gm/dL (11.4-16.0); Lymphocytes # (A) 1.6 k/uL (1.0-4.8); Lymphocytes % (A) 35 %; MCH 31.1 pg (25.0-35.0); MCHC 33.8 g/dL (31.0-37.0); Mean Platelet Volume 7.9; Monocytes # (A) 0.2 k/uL (0-1.0); Monocytes % (A) 5 %; Neutrophils # (A) 2.7 k/uL (1.3-7.7); Neutrophils % (A) 57 %; Platelet Count 208 k/uL (150-450); RBC 4.65 m/uL (3.80-5.40); RDW 13.4 % (11.5-15.5); WBC 4.7 k/uL (3.8-10.6)
[2021-09-26 13:43] LABS: Albumin 4.3 g/dL (3.5-5.0); Calcium 8.9 mg/dL (8.4-10.2); Potassium 3.5 mmol/L (3.5-5.1); Total Bilirubin 0.5 mg/dL (0.2-1.3); Total Protein 6.9 g/dL (6.3-8.2)
[2021-09-26 13:53] LABS: Partial Thromboplastin Time 24.2 sec (22.0-30.0); Prothrombin Time 10.5 sec (9.0-12.0)
--- NOTE | 2021-09-26 14:12 | CT ---
EXAMINATION TYPE: CT brain wo con for TPA DATE OF EXAM: 09/26/2021 HISTORY: CODE STROKE, right eye vision loss. Acute onset neuro deficit. CT DLP: 1030 mGycm. Automated Exposure Control for Dose Reduction was Utilized. TECHNIQUE: CT scan of the head is performed without contrast. COMPARISON: None. FINDINGS: There is no acute intracranial hemorrhage or midline shift identified. There is mild diff use ventricular and sulcal prominence consistent with diffuse age-related cerebral atrophy. There is mild low-attenuation in the periventricular white matter consistent with chronic small vessel ischem ic change. The globes are intact and the visualized sinuses are clear. Nasal septum deviated to ri ght of midline. The calvarium is intact. IMPRESSION: No acute intracranial hemorrhage or midline shift. There is mild diffuse age-related ce rebral atrophy and chronic small vessel ischemic change noted.
--- NOTE | 2021-09-26 14:13 | XR ---
EXAMINATION TYPE: XR chest 2V DATE OF EXAM: 09/26/2021 COMPARISON: NONE HISTORY: Altered mental status and weakness. TECHNIQUE: Frontal and lateral views of the chest are obtained. FINDINGS: There is no focal air space opacity, pleural effusion, or pneumothorax seen. The cardiac silhouette size is within normal limits. The osseous structures are intact. IMPRESSION: No acute process.
--- NOTE | 2021-09-26 14:36 | CT ---
EXAMINATION TYPE: CT angio head neck DATE OF EXAM: 09/26/2021 COMPARISON: None HISTORY: Right eye vision loss. CODE STROKE CT DLP: 495.5 mGycm Automated exposure control for dose reduction was used. CONTRAST: Performed without and with IV Contrast, patient injected with 65 ml mL of Isovue 370. Images obtained from the aortic arch to the vertex of the brain with the IV contrast. There are Three -D postprocessed images. There is normal branching pattern of the great vessels on the aortic arch. There is arterial flow in both subclavian arteries. There is arterial flow in the common internal and external carotid arteries bilaterally. There is wide patency of the carotid artery bifurcations. There is arterial flow in the vertebral arteries bilaterally. There is arterial flow in the vertebral basilar artery system. There is no evidence of carotid or vertebral artery aneurysm or dissection. There is arterial flow in the anterior middle and posterior cerebral arteries bilaterally. No mass ef fect. No evidence of intracranial aneurysm or neovascularity. No evidence of intracranial arterial st enosis . There is normal enhancement of the venous sinuses. The left posterior cerebral artery appears to fill mostly through the posterior communicating artery. IMPRESSION: Negative CT angiogram of the brain. Negative CT angiogram of the neck.
[2021-09-26 15:33] VITALS: BP 143/87; PULSE 51; RESP 18
[2021-09-26] MEDS ORDERED: SODIUM CHLORIDE 0.9% 1,000 ML IV STA (15:49)
== END 2021-09-26 16:10 | disposition other institution (70) ==
LOC: EC 12:46
DX: H33.21 Serous retinal detachment, right eye (principal); E78.5 Hyperlipidemia, unspecified; I10 Essential (primary) hypertension; Z88.0 Allergy status to penicillin
CPT/HCPCS: 36415; 93005; 80053; 85025; 85610; 85730; 71046; 70496; 70450; 70498; 99285; Q9967

== ENCOUNTER → 2023-09-19 | Outpatient (CLI) | payer BC ==
--- NOTE | 2023-09-20 09:32 | MM ---
Reason for Exam: Screening (asymptomatic). Last mammogram was performed 2 year(s) and 1 month(s) ago. Patient History: Menarche at age 16. First Full-Term at age 19. Postmenopausal. Risk Values: Yue 5 year model risk: 1.1%. NCI Lifetime model risk: 4.2%. Prior Study Comparison: 04/06/2016 Bilateral Screening Mammogram, [facility]. 01/03/2018 Bilateral Screening Mammogram, [facility]. 09/15/2021 Bilateral MG screening mammo w CAD, [facility]. Tissue Density: There are scattered areas of fibroglandular density. Findings: Analyzed By CAD. Global asymmetry anterior 12:00 right breast is unchanged. There is no suspicious group of microcalcifications or new suspicious mass in either breast. Overall Assessment: Benign, BI-RAD 2 Management: Screening Mammogram of both breasts in 1 year. . Patient should continue monthly self-breast exams. A clinical breast exam by your physician is recommended on an annual basis. This exam should not preclude additional follow-up of suspicious palpable abnormalities. Note on Yue scores and lifetime risk: 1. A Yue score greater than 3% is considered moderate risk. If this is the case, consider specialist referral to assess eligibility for a risk reducing agent. 2. If overall lifetime risk for the development of breast cancer is 20% or higher, the patient may qualify for future screening with alternating mammogram and breast MRI. Electronically signed and approved by: Sarah Talamantes M.D. Radiologist
--- NOTE | 2023-09-20 13:42 | BD ---
EXAMINATION TYPE: Axial Bone Density DATE OF EXAM: 09/19/2023 CLINICAL HISTORY: 67 years old Female. ICD-10 CODE: Z78.0 ASYMPTOMATIC MENOPAUSAL STA Height: 189.7 Weight: 63 FRAX RISK QUESTIONS: Alcohol (3 or more units per day): no Family History (Parent hip fracture): no Glucocorticoids (More than 3mos): no (Ex: prednisone, prednisolone, methylprednisolone, dexamethasone, and hydrocortisone). History of Fracture in Adulthood: yes Secondary Osteoporosis: 1. Type 1 Diabetes: no 2. Hyperthyroidism: no 3. Menopause before 45: no 4. Malnutrition: no 5. Chronic liver disease: no Rheumatoid Arthritis: no Current Tobacco Use: no RISK FACTORS HISTORY OF: Surgery to Spine/Hip(right/left)/Wrist (right/left): no EXAM MEASUREMENTS: Bone mineral densitometry was performed using the [employer] System. Bone mineral density as measured about the Lumbar spine is: ----- L1-L4(G/cm2): 0.988 T Score Values are as follows: ----- L1: -1.7 ----- L2: -2.2 ----- L3: -1.0 ----- L4: -1.6 ----- L1-L4: -1.6 Z Score Values are as follows: ----- L1: -0.8 ----- L2: -1.3 ----- L3: -0.2 ----- L4: -0.7 ----- L1-L4: -0.7 Bone mineral density has: i1.4 % since study of: 09.15.2021 Bone mineral density about the R hip (g/cm2): 0.865 Bone mineral density about the L hip (g/cm2): 0.887 T Score values are as follows: -----R Neck: -1.7 -----L Neck: -2.0 -----R Total: -1.1 -----L Total: -1.0 Z Score values are as follows: -----R Neck: -0.6 -----L Neck: -0.9 -----R Total: -0.4 -----L Total: -0.2 Bone mineral density has: decreased -2.3 % since study of: 6.28.2021 FRAX%s: The graph provided illustrates a 16.7% chance for a major osteoporotic fx and a 2.5% chance f or the hips probability for fx in 10 years time. IMPRESSION: Osteopenia (T Score between -2.5 and -1). There is slightly increased risk of fracture and the patient may be considered for treatment. Re-Screen 2-5 years. NOTE: T-SCORE=SD OF THE YOUNG ADULT MEAN.
== END | disposition home or self-care (01) ==
LOC: RADMAMWWP 14:11
PROVIDERS: ATTEND Family Medicine
DX: Z12.31 Encounter for screening mammogram for malignant neoplasm of breast (principal); M85.89 Other specified disorders of bone density and structure, multiple sites; Z78.0 Asymptomatic menopausal state
CPT/HCPCS: 77067; 77080